=== PATIENT | female | born 1985 | race Hispanic/Latino ===

== ENCOUNTER 2018-01-29 08:19 | Emergency (ER) | payer MEDICAID, OTHER ==
[2018-01-29 08:41] VITALS: RESP 18
[2018-01-29] MEDS ORDERED: DiphenhydrAMINE 12.5 mg/5 ml LIQ UD (5 ml) PO STA (09:12)
--- NOTE | 2018-01-29 09:25 | ED PDOC ---
Arrival/HPI - General Historian: Patient - History of Present Illness Narrative History of Present Illness (Text): 01/29/18 09:20 33yo female with no pmhx who present with one week history of b/l lower extremity pruritic rash. states the new thing she did was wearing a new pants without washing it. Also states she slept at a different house that used a different detergent than what she use at home. she however denies SOB, tongue swelling, stridor, fever, chills, neck pain, nuchal ridgity, headache, any other inciting factors. <Jett Valladares A - Last Filed: 01/29/18 09:20> <Richard Beckett - Last Filed: 01/29/18 15:52> - General Chief Complaint: Allergic Reaction Time Seen by Provider: 01/29/18 09:01 Past Medical History - Provider Review Nursing Documentation Reviewed: Yes - Psychiatric Hx Substance Use: No <Jett Valladares A - Last Filed: 01/29/18 09:20> Family/Social History - Physician Review Nursing Documentation Reviewed: Yes Family/Social History: Unknown Family HX Smoking Status: Never Smoked Hx Alcohol Use: Yes Frequency of alcohol use: Socially Hx Substance Use: No <Jett Valladares A - Last Filed: 01/29/18 09:20> Allergies/Home Meds <Jett Valladares A - Last Filed: 01/29/18 09:20> <Richard Beckett - Last Filed: 01/29/18 15:52> Allergies/Adverse Reactions: Allergies No Known Allergies Allergy (Verified 01/29/18 08:41) Review of Systems - Physician Review All systems were reviewed & negative as marked: Yes - Review of Systems Constitutional: Normal Eyes: Normal ENT: Normal Respiratory: Normal Cardiovascular: Normal Gastrointestinal: Normal Genitourinary Female: Normal Musculoskeletal: Normal Skin: Rash, Pruritis Neurological: Normal Endocrine: Normal Hemo/Lymphatic: Normal Psychiatric: Normal <Jett Valladares A - Last Filed: 01/29/18 09:20> Physical Exam Vital Signs Reviewed: Yes Vital Signs Temp Pulse Resp BP Pulse Ox 01/29/18 08:38 98.7 F 71 18 107/62 98 Temperature: Afebrile Blood Pressure: Normal Pulse: Regular Respiratory Rate: Normal Appearance: Positive for: Well-Appearing, Non-Toxic, Comfortable Pain Distress: None Mental Status: Positive for: Alert and Oriented X 3 - Systems Exam Head: Present: Atraumatic, Normocephalic Pupils: Present: PERRL Extroacular Muscles: Present: EOMI Conjunctiva: Present: Normal Mouth: Present: Moist Mucous Membranes Neck: Present: Normal Range of Motion Respiratory/Chest: Present: Clear to Auscultation, Good Air Exchange. No: Respiratory Distress, Accessory Muscle Use Cardiovascular: Present: Regular Rate and Rhythm, Normal S1, S2. No: Murmurs Abdomen: No: Tenderness, Distention, Peritoneal Signs Back: Present: Normal Inspection Upper Extremity: Present: Normal Inspection. No: Cyanosis, Edema Lower Extremity: Present: Normal Inspection. No: Edema Neurological: Present: GCS=15, CN II-XII Intact, Speech Normal Skin: Present: Warm, Dry, Rashes (Hives noted to b/l thigh and lower leg), Normal Color Psychiatric: Present: Alert, Oriented x 3, Normal Insight, Normal Concentration <BlaineHappiness A - Last Filed: 01/29/18 09:20> Vital Signs Temp Pulse Resp BP Pulse Ox 01/29/18 09:45 68 18 109/74 99 01/29/18 09:38 98.3 F 86 19 126/53 L 100 01/29/18 08:38 98.7 F 71 18 107/62 98 <Richard Beckett - Last Filed: 01/29/18 15:52> Medical Decision Making ED Course and Treatment: 01/29/18 09:23 33yo female in ED with hives x one weeks she was not in any distress. controlling her secretions. No stridor. No meningeal signs. Pt treated with Pepcid, Benadryl and prednisone in ED. she will be DC home with same medication. She was advised to f/u with a Manager Cost/Microfilm Operator. Advised TRT ED for any new or worsening symptoms - Medication Orders Current Medication Orders: Discontinued Medications Diphenhydramine HCl (Benadryl) 25 mg PO STAT STA Stop: 01/29/18 09:13 Famotidine (Pepcid) 20 mg PO STAT STA Stop: 01/29/18 09:13 Prednisone (Prednisone Tab) 40 mg PO STAT STA Stop: 01/29/18 09:13 <Diru,Happiness A - Last Filed: 01/29/18 09:20> - Medication Orders Current Medication Orders: Discontinued Medications Diphenhydramine HCl (Benadryl) 25 mg PO STAT STA Stop: 01/29/18 09:13 Last Admin: 01/29/18 09:40 Dose: 25 mg Famotidine (Pepcid) 20 mg PO STAT STA Stop: 01/29/18 09:13 Last Admin: 01/29/18 09:40 Dose: 20 mg Prednisone (Prednisone Tab) 40 mg PO STAT STA Stop: 01/29/18 09:13 Last Admin: 01/29/18 09:40 Dose: 40 mg <Richard Beckett - Last Filed: 01/29/18 15:52> - PA / EQUIPMENT ASSOCIATE / Resident Statement / has reviewed & agrees with the documentation as recorded. <Richard Beckett - Last Filed: 01/29/18 15:52> Disposition/Present on Arrival - Present on Arrival Any Indicators Present on Arrival: No History of DVT/PE: No History of Uncontrolled Diabetes: No Urinary Catheter: No History of Decub. Ulcer: No History Surgical Site Infection Following: None - Disposition Have Diagnosis and Disposition been Completed?: Yes Disposition Time: 09:25 Patient Plan: Discharge <Jett Valladares - Last Filed: 01/29/18 09:20> <Richard Beckett - Last Filed: 01/29/18 15:52> - Disposition Diagnosis: Hives Disposition: HOME/ ROUTINE Condition: STABLE Discharge Instructions (ExitCare): Hives Additional Instructions: Follow up with a Manager Cost/junction maker Take your medication as directed Return to ED for worsening symptoms Prescriptions: DiphenhydrAMINE [Benadryl] 25 mg PO Q4 #20 cap Famotidine [Pepcid] 20 mg PO DAILY #6 tab predniSONE [Prednisone] 20 mg PO BID #6 tab Referrals: Laura Phelps MD [Staff Provider] - Follow up with primary Forms: [employer] (Romanian)
[2018-01-29 09:51] VITALS: BP 109/74; PULSE 68; TEMP 98.3; O2SAT 99
== END 2018-01-29 09:55 | disposition home or self-care (01) ==
LOC: ED 08:19
DX: L50.9 Urticaria, unspecified (principal)